=== PATIENT | female | born 1960 | race Caucasian/White ===

== ENCOUNTER 2023-12-10 06:29 | Day surgery (SDC) | payer OTHER ==
[2023-12-08 13:03] VITALS: BMI 26.1
[~2023-12-10 06:29] MED LIST: EPINEPHrine 0.3 MG in Ophthalmic Irrigation Solution 500 ML IRR SCH
[2023-12-10] MEDS ORDERED: PHENYLephrine 2.5% Ophth Soln 15 ml Bottle ONE (06:43)
[2023-12-10] MEDS ORDERED: Cyclopentolate 1% Opth Drop 2 ML BOT ONE (06:43)
[2023-12-10] MEDS ORDERED: Midazolam HCl 2 mg/2 ml Vial ONE (06:48)
[2023-12-10] MEDS ORDERED: fentaNYL 50 mcg/mL 1 mL Vial ONE (06:48)
[2023-12-10] MEDS ORDERED: PROPOFOL 20 ML ONE (06:48)
[2023-12-10] MEDS ORDERED: Dexamethasone 4 mg/ml Vial ONE (07:29)
== END 2023-12-10 08:13 | disposition home or self-care (01) ==
LOC: SDC 06:29
PROVIDERS: ATTEND Ophthalmology Retina Specialist
PROC: 08T53ZZ Resection of Left Vitreous, Percutaneous Approach (ICD-10-PCS; principal; 2023-12-10)
DX: H43.312 Vitreous membranes and strands, left eye (principal)
CPT/HCPCS: J0171; J1100; J2250; J2704; J3010